=== PATIENT | male | born 1975 | race Caucasian/White ===

== ENCOUNTER 2018-09-10 23:45 | Emergency (ER) | payer BC ==
--- NOTE | 2018-09-11 00:06 | EDM.PDOC ---
ED HPI GENERAL MEDICAL PROBLEM - General Chief Complaint: General Stated Complaint: Finger swollen, needs wedding ring off Time Seen by Provider: 09/11/18 00:01 - History of Present Illness INITIAL COMMENTS - FREE TEXT/NARRATIVE: Patient is a 43-year-old who is seen with chief complaint of unable to remove his ring patient states that he's been working on this all day and noted that his finger has swelling and was still unable to remove the dirt and the ring patient came in for ring removal at this time patient states that the ringing is titanium we are not able to remove the ring iron techniques using the cutter or the strength at this time we instructed the patient to elevate his finger with a put a compression dressing to reduce the swelling and have him come back in the morning to see if we could remove it if we are unsuccessful wewill reer him to the hand rgn corey Onset: Today Duration: Hour(s): (24 hours or more), Getting Worse Location: Reports: Lower Extremity, Left Quality: Reports: Pressure, Other (Swelling) Severity: Moderate Improves with: Reports: Cold Therapy Worsens with: Reports: Movement Context: Reports: Trauma - Related Data Allergies Allergy/AdvReac Type Severity Reaction Status Date / Time No Known Allergies Allergy Verified 09/10/18 23:55 Home Meds: Home Meds Citalopram [Citalopram HBr] 30 mg PO DAILY 09/10/18 [History] Methylphenidate HCl [Ritalin] 7 - 8 tab PO ASDIRECTED PRN 09/10/18 [History] amLODIPine [Norvasc] 5 mg PO DAILY 09/10/18 [History] atorvaSTATin [Lipitor] 10 mg PO BEDTIME 09/10/18 [History] ED ROS GENERAL - Review of Systems Review Of Systems: See Below Constitutional: Reports: No Symptoms HEENT: Reports: No Symptoms Respiratory: Reports: No Symptoms Cardiovascular: Reports: No Symptoms Endocrine: Reports: No Symptoms GI/Abdominal: Reports: No Symptoms : Reports: No Symptoms Musculoskeletal: Reports: No Symptoms Skin: Reports: No Symptoms Neurological: Reports: No Symptoms Psychiatric: Reports: No Symptoms Hematologic/Lymphatic: Reports: No Symptoms Immunologic: Reports: No Symptoms ED EXAM, GENERAL - Physical Exam Exam: See Below Exam Limited By: No Limitations General Appearance: Alert, WD/WN, No Apparent Distress Ears: Normal External Exam, Normal Canal, Hearing Grossly Normal, Normal TMs Nose: Normal Inspection, Normal Mucosa, No Blood Throat/Mouth: Normal Inspection, Normal Lips, Normal Teeth, Normal Gums, Normal Oropharynx, Normal Voice, No Airway Compromise Head: Atraumatic, Normocephalic Neck: Normal Inspection, Supple, Non-Tender, Full Range of Motion Respiratory/Chest: No Respiratory Distress, Lungs Clear, Normal Breath Sounds, No Accessory Muscle Use, Chest Non-Tender Cardiovascular: Normal Peripheral Pulses, Regular Rate, Rhythm, No Edema, No Gallop, No JVD, No Murmur, No Rub GI/Abdominal: Normal Bowel Sounds, Soft, Non-Tender, No Organomegaly, No Distention, No Abnormal Bruit, No Mass (Male) Exam: Deferred Rectal (Males) Exam: Deferred Extremities: Other (Patient examined left ring finger swelling tight ring unable to cut at this time a compression dressing was placed we will see him in the morning he is to elevate the finger ice on it is tolerable to bring down the swelling,) Neurological: Other Skin Exam: Warm, Dry, Intact, Normal Color, No Rash Departure - Departure Time of Disposition: 00:13 Disposition: Home, Self-Care 01 Condition: Fair Clinical Impression: Swelling of left ring finger - Discharge Information *PRESCRIPTION DRUG MONITORING PROGRAM REVIEWED*: No *COPY OF PRESCRIPTION DRUG MONITORING REPORT IN PATIENT MEME: No Referrals: Greg Clark PA [Primary Care Provider] - Care Plan Goals: Patient will return in the morning to see the swelling has gone down and then attempt to remove the ring finger I will contact the hand surgeon to see if he has another technique vlable at this tie
== END 2018-09-11 00:32 | disposition home or self-care (01) ==
LOC: LL.ED 23:45
DX: M79.89 Other specified soft tissue disorders (principal); Z79.899 Other long term (current) drug therapy
CPT/HCPCS: 99283

== ENCOUNTER 2018-12-07 20:35 | Emergency (ER) | payer BC ==
[2018-12-07] MEDS ORDERED: Lidocaine 2% 5 ML SDV INJECT ONE (21:05)
[2018-12-07] MEDS ORDERED: Bacitracin/Neomycin/Polymyxin B Oint 0.9 GM U/D Packet TOP ONE (21:07)
--- NOTE | 2018-12-07 22:49 | EDM.PDOC ---
ED HPI GENERAL MEDICAL PROBLEM - General Chief Complaint: Upper Extremity Injury/Pain Stated Complaint: distal amputation 2nd digit right hand Time Seen by Provider: 12/07/18 20:40 Source of Information: Reports: Patient History Limitations: Reports: No Limitations - History of Present Illness INITIAL COMMENTS - FREE TEXT/NARRATIVE: Patient is a 43-year-old who was seen in the ER after cutting his distal right index finger patient was working and caught his finger with a band saw patient drove himself to by 2 to the ER Onset: Today Duration: Hour(s):, Constant Location: Reports: Upper Extremity, Right Quality: Reports: Ache, Throbbing Severity: Moderate Improves with: Reports: Medication Context: Reports: Trauma Associated Symptoms: Reports: No Other Symptoms Treatments LICENSED CLINICIAN: Reports: Dressing(s) right hand 2nd digit Pain Score (Numeric/FACES): 5 - Related Data Allergies Allergy/AdvReac Type Severity Reaction Status Date / Time No Known Allergies Allergy Verified 12/07/18 20:43 Home Meds: Home Meds Citalopram [Citalopram HBr] 30 mg PO DAILY 09/10/18 [History] Methylphenidate HCl [Ritalin] 7 - 8 tab PO ASDIRECTED PRN 09/10/18 [History] amLODIPine [Norvasc] 5 mg PO DAILY 09/10/18 [History] atorvaSTATin [Lipitor] 10 mg PO BEDTIME 09/10/18 [History] Past Medical History HEENT History: Reports: Impaired Vision Cardiovascular History: Reports: High Cholesterol, Hypertension Respiratory History: Reports: None Genitourinary History: Reports: None Musculoskeletal History: Reports: Back Pain, Chronic, Neck Pain, Chronic Neurological History: Reports: None Psychiatric History: Reports: ADD, Depression Endocrine/Metabolic History: Reports: None Oncologic (Cancer) History: Reports: None Dermatologic History: Reports: None - Infectious Disease History Infectious Disease History: Reports: Chicken Pox - Past Surgical History GI Surgical History: Reports: None Musculoskeletal Surgical History: Reports: None Social & Family History - Tobacco Use Smoking Status *Q: Current Every Day Smoker Years of Tobacco use: 20 Packs/Tins Daily: 1 - Caffeine Use Caffeine Use: Reports: Soda - Recreational Drug Use Recreational Drug Use: No Review of Systems - Review of Systems Review Of Systems: See Below Constitutional: Reports: No Symptoms Eyes: Reports: No Symptoms Ears: Reports: No Symptoms Nose: Reports: No Symptoms Mouth/Throat: Reports: No Symptoms Respiratory: Reports: No Symptoms Cardiovascular: Reports: No Symptoms GI/Abdominal: Reports: No Symptoms Genitourinary: Reports: No Symptoms Musculoskeletal: Reports: No Symptoms Skin: Reports: No Symptoms Neurological: Reports: No Symptoms Psychiatric: Reports: No Symptoms ED EXAM, GENERAL - Physical Exam Exam: See Below Exam Limited By: No Limitations General Appearance: Alert, WD/WN, No Apparent Distress Ears: Normal External Exam, Normal Canal, Hearing Grossly Normal, Normal TMs Ear Exam: Bilateral Ear: Auricle Normal, Canal Normal, TM normal Nose: Normal Inspection, Normal Mucosa, No Blood Throat/Mouth: Normal Inspection, Normal Lips, Normal Teeth, Normal Gums, Normal Oropharynx, Normal Voice, No Airway Compromise Head: Atraumatic, Normocephalic Neck: Normal Inspection Respiratory/Chest: No Respiratory Distress, Lungs Clear, Normal Breath Sounds, No Accessory Muscle Use, Chest Non-Tender Cardiovascular: Normal Peripheral Pulses, Regular Rate, Rhythm, No Edema, No Gallop, No JVD, No Murmur, No Rub GI/Abdominal: Normal Bowel Sounds, Soft, Non-Tender, No Organomegaly, No Distention, No Abnormal Bruit, No Mass (Male) Exam: Deferred Rectal (Males) Exam: Deferred Back Exam: Normal Inspection, Full Range of Motion, NT Extremities: Other (Right second finger distal phalanx amputation) Neurological: Alert, Oriented, CN II-XII Intact, Normal Cognition, Normal Gait, Normal Reflexes, No Motor/Sensory Deficits Psychiatric: Normal Affect, Normal Mood Skin Exam: Warm, Dry, Intact, Normal Color, No Rash Course - Vital Signs Last Recorded V/S: Last Vital Signs Temp 98 F 12/07/18 20:40 Pulse 85 12/07/18 20:55 Resp 18 12/07/18 20:40 BP 142/97 H 12/07/18 20:55 Pulse Ox 97 12/07/18 20:40 - Orders/Labs/Meds Orders: Active Orders 24 hr Category Date Time Status Fingers Second Digit Rt F6 [CR] Stat Exams 12/07/18 21:03 Taken Meds: Medications Discontinued Medications Generic Name Dose Route Start Last Admin Trade Name Freq PRN Reason Stop Dose Admin Lidocaine 20 ml 12/07/18 21:05 12/07/18 21:17 Xylocaine-Mpf 2% INJECT 12/07/18 21:06 20 ml ONETIME ONE Administration Neomycin/Polymyxin/Bacitracin 1 each 12/07/18 21:07 12/07/18 21:17 Triple Antibiotic Oint TOP 12/07/18 21:08 1 each ONETIME ONE Administration Departure - Departure Time of Disposition: 22:49 Disposition: Home, Self-Care 01 Condition: Fair Clinical Impression: Amputation of finger of right hand Fracture of hand Qualifiers: Encounter type: initial encounter Fracture type: open Laterality: right Qualified Code(s): S62.91XB - Unspecified fracture of right wrist and hand, initial encounter for open fracture - Discharge Information *PRESCRIPTION DRUG MONITORING PROGRAM REVIEWED*: No *COPY OF PRESCRIPTION DRUG MONITORING REPORT IN PATIENT MEME: No Instructions: Finger Fracture, Adult Referrals: Greg Clark PA [Primary Care Provider] - Care Plan Goals: Patient is to take Augmentin twice a day for 10 days and Toradol 50 mg 4 times a day for pain control patient is to change dressing daily using Neosporin Telfa and 2 inch Kerlix follow-up as needed in clinic continue wearing splint for about 4 weeks restrict usual right hand for same amount of time - My Orders Last 24 Hours: My Active Orders 12/07/18 21:03 Fingers Second Digit Rt F6 [CR] Stat - Assessment/Plan Last 24 Hours: My Active Orders 12/07/18 21:03 Fingers Second Digit Rt F6 [CR] Stat
== END 2018-12-07 23:16 | disposition home or self-care (01) ==
LOC: LL.ED 20:35
DX: S68.610A Complete traumatic transphalangeal amputation of right index finger, initial encounter (principal); S62.91XB Unspecified fracture of right hand, initial encounter for open fracture; I10 Essential (primary) hypertension; F17.210 Nicotine dependence, cigarettes, uncomplicated; E78.00 Pure hypercholesterolemia, unspecified; F90.9 Attention-deficit hyperactivity disorder, unspecified type; F32.9 Major depressive disorder, single episode, unspecified; Z79.899 Other long term (current) drug therapy; W26.8XXA Contact with other sharp object(s), not elsewhere classified, initial encounter; Y99.0 Civilian activity done for income or pay
CPT/HCPCS: 11730; 73140; 99283; J2001